=== PATIENT | female | born 1965 | race Caucasian/White ===

== ENCOUNTER → 2017-08-05 | Outpatient (CLI) | payer SELFPAY ==
--- NOTE | 2017-08-05 17:13 | PCVCIMAG ---
APPROVED REPORT Study performed: 08/05/2017 09:53:13 EXAM: Comprehensive 2D, Doppler, and color-flow Echocardiogram Patient Location: Echo lab Status: routine BSA: 1.77 HR: 66 bpmBP: 124/78 mmHg Rhythm: NSR Other Information Study Quality: Adequate Risk Factors: Cardiac Risk Factors: HTN, Hyperlipidemia Indications research study 2D Dimensions LVEF(%): 47.33 (>50%) IVSd: 8.35 (7-11mm) LVDd: 43.61 mm PWd: 8.86 (7-11mm) LVDs: 33.34 (25-40mm) Left Atrium: 34.60 (27-40mm) Aortic Root: 24.98 mm LV Single Plane 4CH: 53.31 % LV Single Plane 2CH: 61.24 %Alberto's LVEF: 57.28 % Biplane EF: 57.5 % Volumes Left Atrial Volume (Systole) Single Plane 4CH: 46.44 mLSingle Plane 2CH: 38.86 mL LA ESV Index: 28.00 mL/m2 Aortic Valve AoV Peak Grant.: 1.24 m/s AO Peak Gr.: 6.13 mmHgLVOT Max P.33 mmHg LVOT Max V: 0.91 m/s Mitral Valve E/A Ratio: 0.9 MV Decel. Time: 231.61 ms MV E Max Grant.: 0.32 m/s MV A Grant.: 0.37 m/s MV PHT: 67.17 ms IVRT: 148.79 ms Pulmonary Valve PV Peak Grant.: 0.90 m/sPV Peak Gr.: 3.26 mmHg Pulmonary Vein P Vein S: 0.23 m/sP Vein A: 0.35 m/s P Vein D: 0.39 m/sP Vein A Dur.: 117.6 msec P Vein S/D Ratio: 0.59 Tricuspid Valve TR Peak Grant.: 2.28 m/s TR Peak Gr.: 20.71 mmHg Left Ventricle The left ventricle is normal size. There is normal LV segmental wall motion. There is normal left ventricular wall thickness. Left ventricular systolic function is normal. The left ventricular ejection fraction is within the normal range. LVEF is 55-60%. Grade I - abnormal relaxation pattern. Right Ventricle The right ventricle is normal size. The right ventricular systolic function is normal. Atria The left atrium size is normal. The right atrium size is normal. Aortic Valve The aortic valve is normal in structure. No aortic regurgitation is present. There is no aortic valvular stenosis. Mitral Valve The mitral valve is normal in structure. There is no mitral valve regurgitation noted. No evidence of mitral valve stenosis. Tricuspid Valve The tricuspid valve is normal in structure. There is no tricuspid valve regurgitation noted. Pulmonic Valve The pulmonary valve is normal in structure. There is no pulmonic valvular regurgitation. Great Vessels The aortic root is normal in size. IVC is normal in size and collapses with >50% inspiration Pericardium There is no pericardial effusion. There is no pleural effusion. <Conclusion> The left ventricle is normal size. LVEF is 55-60%. Grade I - abnormal relaxation pattern. The right ventricle is normal size. The left atrium size is normal. The aortic valve is normal in structure. There is no mitral valve regurgitation noted. There is no tricuspid valve regurgitation noted. The aortic root is normal in size. There is no pericardial effusion.
== END | disposition home or self-care (01) ==
LOC: PCVCIMAG 09:50
PROVIDERS: ATTEND Internal Medicine Nephrology
DX: I10 Essential (primary) hypertension (principal); E78.5 Hyperlipidemia, unspecified
CPT/HCPCS: 93306